=== PATIENT | male | born 1955 | race Caucasian/White ===

== ENCOUNTER 2023-10-09 01:11 | Emergency (ER) | payer OTHER ==
[2023-10-09 01:21] VITALS: BP 178/96; PULSE 62; RESP 17; BMI 29.7
[2023-10-09 01:24] VITALS: TEMP 98.5
== END 2023-10-09 02:29 | disposition home or self-care (01) ==
LOC: JER 01:11
DX: R42 Dizziness and giddiness (principal)
CPT/HCPCS: 93005; 93010; 99283-25